=== PATIENT | male | born 1995 | race Caucasian/White ===

== ENCOUNTER 2023-03-21 21:18 | Emergency (ER) | payer OTHER, SELFPAY ==
[2023-03-21 21:20] VITALS: BP 127/90; PULSE 95; RESP 16; TEMP 36.4; O2SAT 98; BMI 25.8
--- NOTE | 2023-03-21 21:51 | PC.NURSE ---
Called Dr. Cohen and left voicemail
--- NOTE | 2023-03-21 21:54 | PC.NURSE ---
speaking with Dr. Cohen
--- NOTE | 2023-03-21 21:56 | PC.NURSE ---
on phone with dr lancaster
--- NOTE | 2023-03-21 22:07 | HMH.EDGENADL ---
Discharge Plan Disposition Patient Disposition: Home, Self-Care Condition: Good Chief Complaint: Eye Problems Referrals Follow up/Referrals: Provider,Referral, MD [Primary Care Provider] - See instructions Clinical Impressions Clinical Impression: Disturbance, visual, subjective Instructions Patient Instructions: DI for Visual Field Disturbances Discharge ED Provider: Kaushal Fonseca General Adult HPI General Chief complaint: Eye Problems Stated complaint: Vision Problems Time Seen by Provider: 03/21/23 21:26 Mode of Arrival: Ambulatory Source of Information: Patient Limitations: No Limitations Description of Symptoms (Recalled from ER Triage Doc. by RN): pt c/o floaters and smoking strips in bilateral eyes. pt states started vyanze 2 weeks ago. History of Present Illness HPI narrative: Patient has a PMHx significant for anxiety, depression who presents to the ED with complaints of visual changes. 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 Starting today, patient notes that he has been having visual changes in bilateral eyes, including a smoky sensation, small dots, flashers across both visual morin. Patient denies any visual changes, but notes that these disturbances are bothering him. Patient notes that he started Vyvanse 2 weeks ago. Patient has a history of migraines with aura, but no headaches today. [facility] Disclaimer: The information contained in this section may have been updated after the patient was seen, as this information can be updated by other users. Social History Smoking Status: Current every day smoker alcohol intake: never current occupational status: employed Travel in the last 8 weeks: Inside the [place] ROS Obtained: Yes All systems reviewed & no additional complaints except as documented Physical Exam General General appearance: alert and in no apparent distress Head Head exam: atraumatic, normocephalic and normal inspection Eye Eye exam: Present normal appearance, PERRL and EOMI; Absent scleral icterus or nystagmus ENT ENT exam: Present normal exam, mucous membranes moist and normal external ear exam Neck Neck exam: Present normal inspection, full ROM and trachea midline Chest Chest inspection: Present normal inspection and symmetric chest wall rise; Absent tenderness Respiratory Respiratory exam: Present normal lung sounds bilaterally; Absent respiratory distress, wheezes or accessory muscle use Cardiovascular Cardiovascular exam: Present regular rate, normal rhythm and normal heart sounds Abdominal Exam Abdominal exam: Present soft; Absent distention, tenderness, guarding, rebound, rigidity, trauma, ascites or pulsatile mass exam: Present deferred Extremities Exam Extremities exam: Present normal inspection and full ROM; Absent tenderness Back Exam Back exam: Present normal inspection and full ROM; Absent tenderness Neurological Exam Neurological exam: Present alert, oriented X3, normal gait and motor sensory deficit Psychiatric Psychiatric exam: Present normal affect and normal mood Skin Skin exam: Present warm, dry and normal color Medical Decision Making Medical Records Medical records reviewed: Yes I reviewed the patient's medical records. Kevin Inquiry Pt receiving controlled substance: No Vital Signs: 03/21/23 21:20 Temperature 97.6 F Temperature Source Oral Pulse Rate [Right] 95 H Respiratory Rate 16 Blood Pressure [Right Arm] 127/90 Blood Pressure Mean [Right Arm] 102 02 Sat by Pulse Oximetry 98 Lab Data Lab results reviewed: Yes I reviewed the patient's lab results. Medical Decision Narrative: In summary, Patient has a PMHx significant for anxiety, depression who presents to the ED with complaints of visual changes. Patient states that he has chronic visual disturbances, with the patient describing them as longstand
[2023-03-21 22:22] VITALS: BP 131/71; PULSE 91; RESP 16; TEMP 36.4; O2SAT 98
== END 2023-03-21 22:28 | disposition home or self-care (01) ==
PROVIDERS: Emergency Provider Emergency Medicine
DX: H53.8 Other visual disturbances (principal); F41.9 Anxiety disorder, unspecified; F32.A Depression, unspecified; G43.909 Migraine, unspecified, not intractable, without status migrainosus; F17.200 Nicotine dependence, unspecified, uncomplicated
CPT/HCPCS: 99283